=== PATIENT | female | born 1995 | race Caucasian/White ===

== ENCOUNTER 2017-03-09 19:38 | Emergency (ER) | payer MEDICAID ==
[2017-03-09 20:25] VITALS: RESP 18; TEMP 98
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
[2017-03-09 21:28] LABS: URINE BILIRUBIN NEGATIVE (NEGATIVE); URINE BLOOD SMALL (NEGATIVE); URINE GLUCOSE (UA) NEGATIVE (NEGATIVE); URINE KETONE 15 mg/dL (NEGATIVE); URINE LEUKOCYTE ESTERASE LARGE Leu/uL (NEGATIVE); URINE PROTEIN NEGATIVE mg/dL (<30 mg/dL); URINE UROBILINOGEN 0.2 E.U./dL (<1 E.U./dL)
[2017-03-09 21:30] LABS: URINE APPEARANCE SL CLOUDY (CLEAR); URINE COLOR YELLOW (YELLOW)
[2017-03-09 21:31] LABS: ADD MANUAL DIFF? NO
[2017-03-09 21:40] LABS: URINE WBC TNTC /hpf (0-6)
[2017-03-09 21:41] LABS: URINE BACTERIA MOD (NEG)
[2017-03-09 21:45] LABS: INR 1.09 (0.93-1.08); PARTIAL THROMBOPLASTIN TIME 29.8 Seconds (23.7-30.8)
[2017-03-09 21:47] LABS: ALB/GLOB RATIO 1.2 (1.1-1.8); ALKALINE PHOSPHATASE 67 U/L (38-133); ALT/SGPT 43 U/L (7-56); AST/SGOT 28 U/L (15-39); BASO # 0.03 K/mm3 (0.0-2.0); BASO % 0.2 % (0.0-3.0); BILIRUBIN,TOTAL 0.4 mg/dL (0.2-1.3); BLOOD UREA NITROGEN 14 mg/dL (7-21); CALCIUM 9.5 mg/dL (8.4-10.5); CARBON DIOXIDE 22 mmol/L (21-33); CHLORIDE 103 mmol/L (98-107); EOS # 0.2 (0.0-0.7); EOS % 1.5 % (1.5-5.0); GFR AFRICAN-AMERICAN > 60; GLUCOSE,RANDOM 72 mg/dL (70-110); GRAN # 8.56 (1.4-6.5); GRAN % 62.7 % (50.0-68.0); HEMATOCRIT 31.3 % (36.0-48.0); LYMPH # 4.1 (1.2-3.4); LYMPH % 30.3 % (22.0-35.0); MEAN CELL VOLUME 86.7 fL (80.0-105.0); MEAN CORPUSCULAR HEMOGLOBIN 29.6 pg (25.0-35.0); MEAN CORPUSCULAR HGB CONC 34.2 g/dl (31.0-37.0); MEAN PLATELET VOLUME 9.7 fl (7.0-11.0); MONO # 0.7 (0.1-0.6); MONO % 5.3 % (1.0-6.0); PLATELET COUNT 310 10^3/uL (120.0-450.0); POTASSIUM 3.8 mmol/L (3.6-5.0); RED CELL DISTRIBUTION WIDTH 13.4 % (11.5-14.5); SODIUM 136 mmol/L (132-148); TOTAL PROTEIN 7.4 g/dL (5.8-8.3); WHITE BLOOD COUNT 13.7 10^3/ul (4.5-11.0)
[2017-03-09] MEDS ORDERED: cefTRIAXone 1 gm 1 GM/100 ML BAG IVPB STA (22:27)
--- NOTE | 2017-03-09 22:56 | US ---
EXAM: US First Trimester, Transabdominal US , Transvaginal CLINICAL HISTORY: 21 years old, female; Pain; complicated by abdominal or pelvic pain; Left lower quadrant; First trimester; Gestational age or lmp: 01/09/2017; ; Additional info: Left pelvic pain TECHNIQUE: Real-time transabdominal and transvaginal obstetrical ultrasound of the maternal pelvis and a first trimester with image documentation. Transvaginal imaging was used for better evaluation of the fetus and adnexa. COMPARISON: No relevant prior studies available. FINDINGS: Uterus: There is a well formed gestational sac within the endometrial canal. A pole and yolk sac are seen within the gestational sac. [place] rump length measurement correlates with an estimated gestational age of 7 weeks 2 days. cardiac activity is seen with a heart rate of 145 beats per minute. Adnexa: The ovaries are unremarkable in appearance. Free fluid: None. IMPRESSION: Single live IUP as above.
[2017-03-09 23:45] VITALS: BP 115/72; PULSE 95; O2SAT 100
== END 2017-03-09 23:45 | disposition home or self-care (01) ==
LOC: ED 19:38
DX: O23.41 Unspecified infection of urinary tract in pregnancy, first trimester (principal); Z3A.01 Less than 8 weeks gestation of pregnancy; R10.2 Pelvic and perineal pain
CPT/HCPCS: 76817; 80053; 81001; 84702; 84703; 85025; 85610; 85730; 86850; 86900; 87086; 96365; 99284; J0696